=== PATIENT | female | born 1940 | race Caucasian/White ===

== ENCOUNTER → 2018-05-01 | Emergency (ER) | payer MEDICARE ==
[~2018-05-01] VITALS: Ht 152.4 cm; Wt 81.7 kg
[~2018-05-01] MED LIST: HYDROCHLOROTHIA25 MG PO; LOVASTATIN20 MG PO; PLAVIX75 MG PO
--- OUTSIDE RECORDS SUMMARY | 2018-05-01 22:10 | XMS ---
PreManage Notification: TERESE VALENCIA Security Maintenance Data Analyst Events No recent Security Events currently on file CRITERIA MET - POL CARE PROVIDERS There are no care providers on record at this time. Mandie has no Care Guidelines for this patient. Michele VISIT COUNT (12 MO.) 1 MALICK Rachel TOTAL 1 NOTE: Visits indicate total known visits. ED/UCC VISIT TRACKING (12 MO.) 05/01/2018 20:35 [facility] TYPE: Emergency COMPLAINT: - FALL INPATIENT VISIT TRACKING (12 MO.) No inpatient visits to display in this time frame [email or web address]
== END ==
LOC: ED 20:34
DX: S09.90XA Unspecified injury of head, initial encounter (principal); S00.81XA Abrasion of other part of head, initial encounter; I10 Essential (primary) hypertension; Z79.899 Other long term (current) drug therapy; W05.0XXA Fall from non-moving wheelchair, initial encounter
CPT/HCPCS: 70450; 99283